=== PATIENT | female | born 1975 | race African-American/Black ===

== ENCOUNTER 2017-02-12 15:23 | Emergency (ER) | payer MEDICAID ==
[~2017-02-12] VITALS: Ht 167.6 cm; Wt 64.0 kg
[2017-02-12 15:25] VITALS: BP 123/58; PULSE 111; RESP 26; O2SAT 100
[2017-02-12 15:33] VITALS: BP 111/64; PULSE 104; RESP 29; TEMP 98.2; O2SAT 100
--- NOTE | 2017-02-12 15:42 | PD ---
HPI . strange breathing since this morning Chief Complaint: Respiratory Distress Time Seen by Provider: 15:37 Travel History International Travel<30 days: No Contact w/Intl Traveler<30days: No Traveled to known affect area: No History of Present Illness HPI 41 yr old female with no significant past medical history here brought directly back from triage for a reported asthma attack. I was initially asked by the nurse to provide breathing treatments. I go in to assess the patient. She was forcefully making herself hyperventilate. According to boyfriend, patient is under a lot of stress. She has stress from her job and kids. She has no conditions that she is aware of. PFSH Past Medical History Anemia: Yes Arthritis: No Asthma: No Heart Rhythm Problems: No Cardiovascular Problems: No High Cholesterol: No Chest Pain: No Congestive Heart Failure: No COPD: No Cerebrovascular Accident: No Diminished Hearing: No GERD: No Genitourinary: No Headaches: No Hepatitis: No Hiatal Hernia: No Hypertension: No Kidney Stones: No Musculoskeletal: Yes (CHRONIC BACK PAIN) Neurologic: No Reproductive: No Respiratory: No Migraines: No Myocardial Infarction: No Renal Failure: No Seizures: No Sleep Apnea: No Thyroid Disease: Yes (HYPO) Ulcer: No : 3 Para: 3 Tubal Ligation: Yes Past Surgical History Abdominal Surgery: No Appendectomy: No Cardiac Surgery: No Cholecystectomy: No Ear Surgery: No Endocrine Surgery: No Eye Surgery: No Genitourinary Surgery: No Gynecologic Surgery: No Oral Surgery: No Thoracic Surgery: No Social History Alcohol Use: No Tobacco Use: Yes (05/30 PPD) Substance Use: No (PT DENIES ) Allergies-Medications (Allergen,Severity, Reaction): Coded Allergies: No Known Allergies (Verified , 03/14/16) Reported Meds & Prescriptions Reported Meds & Active Scripts Active No Active Prescriptions or Reported Medications Review of Systems General / Constitutional: No: Fever Eyes: No: Visual changes HENT: No: Headaches Cardiovascular: No: Chest Pain or Discomfort Respiratory: Positive: Other (patient hyperventilating ), No: Shortness of Breath Gastrointestinal: No: Abdominal Pain Genitourinary: No: Dysuria Musculoskeletal: No: Pain Skin: No Rash Neurologic: No: Weakness Psychiatric: No: Depression Endocrine: No: Polydipsia Hematologic/Lymphatic: No: Easy Bruising Physical Exam Narrative GENERAL: AAO x 3, appears to be hyperventilating intentionally, when talking, labored respirations stop SKIN: Warm and dry. No visible rashes or bruising. HEAD: Normocephalic and atraumatic. EYES: No scleral icterus. No injection or drainage. ENT: No nasal drainage noted. Mucous membranes pink. Airway patent. NECK: Supple, trachea midline. No JVD. CARDIOVASCULAR: Regular rate and rhythm without murmurs, gallops, or rubs. RESPIRATORY: Breath sounds equal bilaterally. No accessory muscle use. No rhonchi or rales. no wheezing GASTROINTESTINAL: visual inspection normal EXTREMITIES: No cyanosis or edema. BACK: No obvious deformity. NEURO: CN II-12 intact, carnival worker strength normal b/l, UE and LE 5/5, no focal deficits PSYCH: AAO x 3, flat Data Data Last Documented VS Vital Signs Date Time Temp Pulse Resp B/P (MAP) Pulse Ox O2 Delivery O2 Flow Rate FiO2 02/12/17 16:00 100 Nasal Cannula 2.00 02/12/17 15:33 98.2 104 29 Orders Orders Complete Blood Count With Diff (02/12/17 15:43) B-Type Natriuretic Peptide (02/12/17 15:43) Salicylates (Aspirin) (02/12/17 15:43) Tylenol (Acetaminophen) (02/12/17 15:43) Blood Glucose (02/12/17 15:43) Comprehensive Metabolic Panel (02/12/17 15:43) Troponin I (02/12/17 15:43) Ed Urine Pregnancytest Poc (02/12/17 15:51) MDM Medical Decision Making Medical Screen Exam Complete: Yes Emergency Medical Condition: Yes Medical Record Reviewed: Yes Differential Diagnosis stress reaction, anxiety, less likely asthma, less likely respiratory distress Narrative Course 41 yr old female here with c/o strange breathing reported by her boyfriend. On exam patient is hyperventilating. Lungs are clear. We had a discussion regarding her anxiety and after our nurse performed accucheck (which patient does not like needles), her breathing immediately became normal. I have discussed the case with attending. We ordered, labs, blood gas, CXR. Apparently patient's breathing completely normalized and she decided to sign out AMA. Diagnosis Primary Impression: Left against medical advice Scripts No Active Prescriptions or Reported Meds Disposition: AGAINST MEDICAL ADVICE Condition: Stable Mangali,Natty PA Feb 12, 2017 15:42
== END 2017-02-12 16:08 | disposition left against medical advice (07) ==
LOC: NEPD 15:23
DX: R06.4 Hyperventilation (principal)
CPT/HCPCS: 99283